=== PATIENT | male | born 1980 | race African-American/Black ===

== ENCOUNTER → 2018-10-12 | Outpatient (CLI) | payer BC, OTHER ==
[2018-06-17 13:55] VITALS: BP 119/65
[~2018-10-12] MED LIST: BUTA1TAB23 PO; OSEL75CA PO
--- NOTE | 2018-10-12 12:00 | KCIC ---
MR of the right wrist Indication: Right wrist pain, injury 06/16/2018. Scapholunate injury. Comparison: None are available Technique: Standard multiplanar sequences are obtained. FINDINGS: Artifact: No significant image degradation Triangular fibrocartilage: Intact. Ulna minus variance. Distal radioulnar alignment: No dislocation. Extensor carpi ulnaris tendon: Intact, no significant dislocation. Other extensor compartments: Intact Flexor tendons: Intact Median nerve: Unremarkable Scapholunate ligament: Heterogeneous signal within the ligament. There is a linear band of fluid signal along the scaphoid aspect. The scapholunate distance is widened. Lunotriquetral ligament: No evidence of a tear. Carpal bone alignment: Dorsal tilt of the lunate with increased scapholunate angle. There is also increased lunocapitate axis. Fluid: No significant effusion. Joints: Small radiocarpal and midcarpal joint effusions. Bones: Marrow edema within the scaphoid bone, greater at the waist and proximal aspect. There is a fracture of the posterior proximal scaphoid with very slight posterior displacement of the fragment. Soft tissues: Mild soft tissue edema dorsal and radial to the wrist. There is a small fluid collection anterior to the ulna and adjacent to the pisotriquetral joint compatible with a small effusion or ganglion cyst. There is a very small fluid pocket seen anterior to the third and fourth carpometacarpal joints compatible with a small ganglion. Several smaller lesion seen just below this. Soft tissue edema or hemorrhage medial to the scaphoid. IMPRESSION: 1. Fracture involving the posterior aspect of the proximal scaphoid with mild displacement. 2. There is also a tear of the scaphoid aspect of the scapholunate ligament, with evidence of instability. 3. Findings were discussed with Dr. Bahena. Electronically signed by: Nic Fry MD (10/12/2018 11:56 AM) [facility]
== END | disposition home or self-care (01) ==
LOC: KCIC MRI 08:37
PROVIDERS: ATTEND Orthopaedic Surgery Sports Medicine
DX: S62.031A Displaced fracture of proximal third of navicular [scaphoid] bone of right wrist, initial encounter for closed fracture (principal); S63.8X1A Sprain of other part of right wrist and hand, initial encounter; X58.XXXA Exposure to other specified factors, initial encounter; Y93.89 Activity, other specified; Y92.89 Other specified places as the place of occurrence of the external cause; Y99.8 Other external cause status
CPT/HCPCS: 73221

== ENCOUNTER 2018-11-08 13:01 | Emergency (ER) | payer BC, OTHER ==
[~2018-11-08] VITALS: Ht 177.8 cm; Wt 72.6 kg
[2018-11-08 13:15] VITALS: BP 109/75
--- NOTE | 2018-11-08 13:38 | PHYS DOC ---
Past Medical History Past Medical History: No Pertinent History Past Surgical History: No Surgical History Alcohol Use: Rarely Drug Use: None Adult General Chief Complaint Chief Complaint: HEADACHE HPI HPI Patient is a 38 yo male who presents with complaint of headache beginning this morning around 0400 that awoke him from sleep. Patient describes the pain as being a constant pain the R side of his head and neck and rates it as 6/10 ( although says the patient was crying in pain at home). He reports he took ibuprofen at 0900 and acetaminophen at 1200 with minor symptomatic relief. He also reports that yesterday he "felt bad" but did not have respiratory symptoms. His reports that both daughters have tested positive for influenza A and are home sick. Patient also reports he had a nosebleed when he awoke this morning but that it resolved quickly. He denies cough, nasal congestion, nausea, vomiting, diarrhea, dysuria, bowel/bladder incontinence. He denies tobacco use, drug use, or etoh use. He denies recent travel. He reports he did not get a flu shot this season. Review of Systems Review of Systems Constitutional: Denies fever or chills [] Eyes: Denies change in visual acuity, redness, or eye pain [] HENT: Denies nasal congestion or sore throat; Reports R sided headache; reports 1 nosebleed. Respiratory: Denies cough or shortness of breath [] Cardiovascular: Denies chest pain or palpitations GI: Denies abdominal pain, nausea, vomiting, or diarrhea [] : Denies dysuria or hematuria [] Musculoskeletal: Admits R sided neck pain. Integument: Denies rash or skin lesions [] Neurologic: Denies headache, focal weakness or sensory changes [] Complete systems were reviewed and found to be within normal limits, except as documented in this note. Current Medications Current Medications Current Medications Medications (Trade) Dose Ordered Sig/Blake Start Time Stop Time Status Last Admin Dose Admin Dexamethasone (Decadron) 10 mg 1X ONCE 11/08/18 13:45 11/08/18 13:46 DC 11/08/18 14:15 10 MG Ketorolac Tromethamine (Toradol 30mg Vial) 30 mg 1X ONCE 11/08/18 13:45 11/08/18 13:57 DC Allergies Allergies Allergies Coded Allergies Type Severity Reaction Last Updated Verified No Known Drug Allergies 06/17/18 No Physical Exam Physical Exam Constitutional: Well developed, well nourished, no acute distress, non-toxic appearance. [] HENT: Normocephalic, atraumatic, bilateral external ears normal, oropharynx moist, no oral exudates, nose normal, dried blood around L nare. [] Eyes: PERRLA, EOMI, conjunctiva normal, no discharge. [] Neck: Normal range of motion, no tenderness, supple, no kernig or brudzinski sign Cardiovascular:Heart rate regular rhythm, no murmur [] Lungs & Thorax: Bilateral breath sounds clear to auscultation [] Abdomen: Soft, nontender Skin: Warm, dry, no erythema, no rash. [] Back: No tenderness, no CVA tenderness, no lesions. Extremities: No tenderness, no cyanosis, no clubbing, ROM intact, no edema. [] Neurologic: Alert and oriented X 3, normal motor function, normal sensory function, no focal deficits noted, UE and LE muscle strength 5/5. No past pointing on finger to nose. UE/LE reflexes 2/4 bilaterally. Face symmetric, speech clear. Psychologic: Affect normal, judgement normal, mood normal. [] Current Patient Data Vital Signs Vital Signs Date Time Temp Pulse Resp B/P (MAP) Pulse Ox O2 Delivery O2 Flow Rate FiO2 11/08/18 13:15 98.2 64 18 109/75 (86) 99 Room Air 98.2 EKG EKG [] Radiology/Procedures Radiology/Procedures [] Course & Med Decision Making Course & Med Decision Making Patient is 38 yo male w/ no PMH who presents with complaint of headache of sudden onset beginning at 0400 causing him to stay home from work today. He reports his children have tested positive for flu and that although he "felt bad " yesterday his only symptom today is a headache. He reports he gets moderate symptomatic relief from tylenol. Physical exam unremarkable and patient is neurologically intact with no FND. Patient offered IM toradol but refused the medication. Patient treated with dexamethasone in ED. D/t presence of influenza in household patient given prescription for tamiflu. Patient also given fioricet prescription. Patient told to follow up with PCP (Dr. Nilson Zamora). Patient stable for discharge with outpatient follow-up with PCP/neurologist. Neurologist referral provided. Discussed findings and plan with patient and family, who acknowledge understanding and agreement. Draglexy Disclaimer Dragon Disclaimer This electronic medical record was generated, in whole or in part, using a voice recognition dictation system. Departure Departure Impression: Primary Impression: Headache Additional Impression: Exposure to influenza Disposition: HOME, SELF-CARE Condition: STABLE Referrals: NILSON ZAMORA MD (PCP) LAINE TYLER MD Patient Instructions: Headache, FAQs, Influenza Facts Scripts Oseltamivir Phosphate (TAMIFLU) 75 Mg Capsule 1 CAP PO BID, #10 CAP Prov: VÍCTOR MANTILLA DO 11/08/18 Butalb/Acetaminophen/Caffeine ([id number] 50-325-40) 1 Each Tablet 1 EACH PO Q6HRS PRN for HEADACHE, #14 TAB Prov: VÍCTOR MANTILLA DO 11/08/18 Problem Qualifiers Primary Impression: Headache Headache type: unspecified Headache chronicity pattern: acute headache Intractability: not intractable Qualified Codes: R51 - Headache VÍCTOR MANTILLA DO Nov 08, 2018 13:38
[2018-11-08] MEDS ORDERED: KETOROLAC 30 MG/ML VIAL. IM ONE (13:45)
[2018-11-08] MEDS ORDERED: DEXAMETHASONE 4 MG TABLET PO ONE (13:45)
[2018-11-08] MEDS ORDERED: BUTA1TAB23 PO (13:48)
[2018-11-08] MEDS ORDERED: OSEL75CA PO (13:48)
== END 2018-11-08 14:20 | disposition home or self-care (01) ==
LOC: ER 13:01
DX: R51 Headache (principal); M54.2 Cervicalgia; Z20.828 Contact with and (suspected) exposure to other viral communicable diseases
CPT/HCPCS: 99283; J8540

== ENCOUNTER 2019-12-12 10:48 | Emergency (ER) | payer BC, OTHER | END 2019-12-12 13:35 | disposition left against medical advice (07) | LOC: ER 10:48 | DX: R10.9 Unspecified abdominal pain (principal); R19.7 Diarrhea, unspecified; Z53.21 Procedure and treatment not carried out due to patient leaving prior to being seen by health care provider ==

== ENCOUNTER 2020-11-01 08:02 | Emergency (ER) | payer OTHER ==
[~2020-11-01] VITALS: Ht 177.8 cm; Wt 72.0 kg
--- NOTE | 2020-11-01 08:56 | PHYS DOC ---
Past Medical History Past Medical History: No Pertinent History Past Surgical History: No Surgical History Smoking Status: Never Smoker Alcohol Use: Occasionally Drug Use: None General Adult EDM: Chief Complaint: HYPERTENSION HPI: HPI: Patient is a 40 year old male who presents to ER today for evaluation of high blood pressure. Patient said he has history of SVT, he had cardiac ablation in April of last year. Patient has been doing okay. Patient also has a history of anxiety, he is on Paxil and lorazepam 1 mg as needed. Patient started feeling anxious yesterday, he checked his blood pressure and it was 130/75, he rechecked it again and it was 140/80. He denies any chest pain, no abdominal pain, no nausea vomiting. Patient woke up this morning feeling anxious about his blood pressure issue so he came here for evaluation. Arrival to ER here patient blood pressure was 120/75 systolic with a heart rate of 78 beats per minutes, oxygen saturation 100% on room air. He was in no acute distress, no headache, no blurry vision, no chest pain, no trouble breathing. Patient has no history hypertension Review of Systems: Review of Systems: Constitutional: Denies fever or chills. [] Eyes: Denies change in visual acuity. [] HENT: Denies nasal congestion or sore throat. [] Respiratory: Denies cough or shortness of breath. [] Cardiovascular: Denies chest pain or edema. [] GI: Denies abdominal pain, nausea, vomiting, bloody stools or diarrhea. [] : Denies dysuria. [] Musculoskeletal: Denies back pain or joint pain. [] Integument: Denies rash. [] Neurologic: Denies headache, focal weakness or sensory changes. [] Endocrine: Denies polyuria or polydipsia. [] Lymphatic: Denies swollen glands. [] Psychiatric: Denies depression or anxiety. [] Heart Score: Risk Factors: Risk Factors: DM, Current or recent (<one month) smoker, HTN, HLP, family history of CAD, obesity. Risk Scores: Score 0 - 3: 2.5% MACE over next 6 weeks - Discharge Home Score 4 - 6: 20.3% MACE over next 6 weeks - Admit for Clinical Observation Score 7 - 10: 72.7% MACE over next 6 weeks - Early Invasive Strategies Allergies: Allergies: Allergies Coded Allergies Type Severity Reaction Last Updated Verified No Known Drug Allergies 06/17/18 No Physical Exam: PE: Constitutional: Well developed, well nourished, no acute distress, non-toxic appearance. [] HENT: Normocephalic, atraumatic, bilateral external ears normal, oropharynx moist, no oral exudates, nose normal. [] Eyes: PERRLA, EOMI, conjunctiva normal, no discharge. [] Neck: Normal range of motion, no tenderness, supple, no stridor. [] Cardiovascular:Heart rate regular rhythm, no murmur [] Lungs & Thorax: Bilateral breath sounds clear to auscultation [] Abdomen: Bowel sounds normal, soft, no tenderness, no masses, no pulsatile masses. [] Skin: Warm, dry, no erythema, no rash. [] Back: No tenderness, no CVA tenderness. [] Extremities: No tenderness, no cyanosis, no clubbing, ROM intact, no edema. [] Neurologic: Alert and oriented X 3, normal motor function, normal sensory function, no focal deficits noted. [] Psychologic: Affect normal, judgement normal, mood normal. [] Current Patient Data: Vital Signs: Vital Signs Date Time Temp Pulse Resp B/P (MAP) Pulse Ox O2 Delivery O2 Flow Rate FiO2 11/01/20 08:48 98.4 85 16 123/72 (89) 97 Room Air 98.4 EKG: EKG: EKG was done at 9:00, heart rate of 64 bpm, sinus rhythm, no ST segment elevation. Normal axis Radiology/Procedures: Radiology/Procedures: [] Course & Med Decision Making: Course & Med Decision Making Pertinent Labs and Imaging studies reviewed. (See chart for details) Patient is a 40-year-old male who presented to ER due to elevated blood pressure at home since yesterday. Patient blood pressure is normal here in the ER, however he will need to follow-up with her family physician for reevaluation of his blood pressure issue. His EKG in the ER here is normal. Dragon Disclaimer: Immanuel Disclaimer: This electronic medical record was generated, in whole or in part, using a voice recognition dictation system. Departure Departure Impression: Primary Impression: Hypertension Disposition: 01 DC HOME SELF CARE/HOMELESS Condition: STABLE Referrals: NO PCP (PCP) Please follow-up with your doctor on Monday for reevaluation. Patient Instructions: Hypertension, [id number] JOCY PRINCE DO Nov 01, 2020 08:56
[2020-11-01 09:20] VITALS: BP 121/71
--- NOTE | 2020-11-02 07:39 | EKG ---
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
== END 2020-11-01 09:35 | disposition home or self-care (01) ==
LOC: ER 08:02
DX: I10 Essential (primary) hypertension (principal)
CPT/HCPCS: 93005; 99283